=== PATIENT | female | born 1955 | race Caucasian/White ===

== ENCOUNTER 2021-09-02 20:45 | Emergency (ER) | payer MEDICARE, MEDICAID ==
[~2021-09-02] VITALS: Ht 165.1 cm; Wt 71.0 kg
[2021-09-02 21:07] VITALS: BP 144/81
[2021-09-02] MEDS ORDERED: SULF1TAB49 PO (22:56)
[2021-09-02] MEDS ORDERED: sulfamethoxazole/trimethoprim DS (800/160mg) tablet PO ONE (23:00)
--- NOTE | 2021-09-02 23:05 | NUR ---
po med given
== END 2021-09-02 23:23 | disposition home or self-care (01) ==
LOC: ER 20:47
DX: S62.353A Nondisplaced fracture of shaft of third metacarpal bone, left hand, initial encounter for closed fracture (principal); M25.532 Pain in left wrist; M79.642 Pain in left hand; Z79.2 Long term (current) use of antibiotics; W18.30XA Fall on same level, unspecified, initial encounter; Y93.89 Activity, other specified; Y92.89 Other specified places as the place of occurrence of the external cause; Y99.8 Other external cause status
CPT/HCPCS: 73130; 99284